=== PATIENT | female | born 2000 | race African-American/Black ===

== ENCOUNTER 2022-02-09 21:04 | Emergency (ER) | payer OTHER ==
[~2022-02-09] VITALS: Ht 175.3 cm; Wt 64.4 kg
[2022-02-09] MEDS ORDERED: CEFDINIR300 MG PO (22:41)
[2022-02-09] MEDS ORDERED: FAMOTIDINE20 MG PO (22:41)
[2022-02-09 22:50] VITALS: BP 114/61
== END 2022-02-09 22:50 | disposition home or self-care (01) ==
LOC: FSED 21:11
DX: R10.30 Lower abdominal pain, unspecified (principal); K52.9 Noninfective gastroenteritis and colitis, unspecified; N39.0 Urinary tract infection, site not specified; F17.210 Nicotine dependence, cigarettes, uncomplicated
CPT/HCPCS: 81003; 81025; 99282